=== PATIENT | male | born 1950 | race African-American/Black ===

== ENCOUNTER 2018-08-08 11:14 | Inpatient (IN) ==
[2018-08-08] MEDS ORDERED: SODIUM CHLORIDE 0.9% 1,000 ML IV STA (12:12)
[2018-08-08 12:26] LABS: Basophils % 0.2 % (0.0-0.8); Eosinophils # 0.1 10*3/uL (0.0-0.87); Eosinophils % 2.2 % (0.00-10.9); Hematocrit 33.4 VOL% (42.0-52.0); Hemoglobin 10.1 GM/DL (14.0-18.0); Immature Granulocytes % 0.2 %; Immature Granulocytes Absolute 0.01 #; Lymphocytes # 1.4 10*3/uL (1.4-4.0); Lymphocytes % 35.4 % (21.2-54.2); Mean Corpuscular HGB Conc 30.2 GM/DL (32-36); Mean Corpuscular Hemoglobin 27 PG (27-34); Mean Corpuscular Volume 88.6 FL (87-102); Mean Platelet Volume 10.5 FL (9.6-12.0); Monocytes # 0.3 10*3/uL (0.11-0.8); Monocytes % 6.9 % (1.7-12.7); Neutrophils # 2.2 10*3/uL (1.4-7.4); Neutrophils % 55.1 % (38.7-73.9); Platelet Count 128 T/CUMM (130-400); Red Blood Count 3.77 MC/CUMM (3.8-5.5); Red Cell Distribution Width 14.8 % (9.3-17.3); White Blood Count 4.1 T/CUMM (4-12)
[2018-08-08 12:54] LABS: Alanine Aminotransferase 22 U/L (16-61); Albumin 3.4 G/DL (3.4-5.0); Alkaline Phosphatase 69 U/L (45-117); Aspartate Amino Transferase 17 U/L (0-37); Bilirubin,Total < 0.39 MG/DL (0.2-1.0); Blood Urea Nitrogen 14 MG/DL (7-18); CKMB % 2.4 %; Calcium 8.8 MG/DL (8.5-10.1); Glucose 76 MG/DL (74-106); Osmolality,Calculated 282.1 MOS/KG (273-304); Potassium 3.7 MMOL/L (3.5-5.1); Sodium 142 MMOL/L (136-145); Total Protein 6.6 G/DL (6.4-8.3); Troponin I < 0.015 NG/ML (0.00-0.045)
[2018-08-08 14:06] LABS: Apearance,Urine CLEAR (Clear); Bacteria,Urine Occasional /HPF (Few); Bilirubin,Urine Negative (Negative); Blood, Urine Small mg/dL (Negative); Glucose,Urine (UA) Negative (Negative); Ketones,Urine Negative (Negative); Mucus,Urine Occasional /LPF (Occasional); Nitrite,Urine Negative (Negative); Protein,Urine Negative; RBC,Urine 3 /HPF (0-4); Sperm,Urine Occasional /HPF (Negative); Squamous Epithelial Cell,Urine Occasional /HPF (0-10); Urine Color Yellow (Yellow); Urine Specific Gravity 1.019 (1.001-1.035); Urine Urobilinogen < 2.0 EU/DL (0.2-1.0)
[2018-08-08] MEDS ORDERED: ONDANSETRON 4 MG/2 ML VIAL IV PRN (15:07)
[2018-08-08] MEDS ORDERED: DOCUSATE SODIUM 100 MG CAPSULE PO PRN (15:07)
[2018-08-08] MEDS ORDERED: ACETAMINOPHEN 325 MG TABLET PO PRN (15:07)
[2018-08-08] MEDS ORDERED: DEXTROSE 50% 25 GM/50 ML SYRINGE IV PRN (17:19)
[2018-08-08] MEDS ORDERED: GLUCAGON 1 MG VIAL IM PRN (17:19)
[2018-08-08] MEDS: ASPIRIN EC 325 MG TABLET PO SCH (17:58)
[2018-08-08] MEDS: ENOXAPARIN 40 MG/0.4 ML SYRINGE SUBCUT SCH (17:59)
[2018-08-08] MEDS: traZODone 50 MG TABLET PO SCH (20:55)
[2018-08-08] MEDS: GABAPENTIN 300 MG CAPSULE PO SCH (20:56)
[2018-08-08] MEDS: INSULIN REGULAR 100 UNIT/ML SUBCUT SCH (20:56)
[2018-08-08] MEDS: ATORVASTATIN 40 MG TABLET PO SCH (20:56)
[2018-08-08] MEDS: LATANOPROST 0.005% OPH SOLN 2.5 ML BOTTLE BOTH EYES SCH (21:01)
[2018-08-09 05:37] LABS: Basophils % 0.3 % (0.0-0.8); Eosinophils # 0.1 10*3/uL (0.0-0.87); Hematocrit 34.9 VOL% (42.0-52.0); Hemoglobin 10.4 GM/DL (14.0-18.0); Immature Granulocytes % 0.3 %; Immature Granulocytes Absolute 0.01 #; Lymphocytes # 1.1 10*3/uL (1.4-4.0); Mean Corpuscular HGB Conc 29.8 GM/DL (32-36); Mean Corpuscular Hemoglobin 27 PG (27-34); Mean Corpuscular Volume 88.8 FL (87-102); Mean Platelet Volume 10.9 FL (9.6-12.0); Monocytes # 0.2 10*3/uL (0.11-0.8); Monocytes % 6.2 % (1.7-12.7); Neutrophils # 1.7 10*3/uL (1.4-7.4); Neutrophils % 56.2 % (38.7-73.9); Platelet Count 119 T/CUMM (130-400); Red Blood Count 3.93 MC/CUMM (3.8-5.5); Red Cell Distribution Width 14.6 % (9.3-17.3); White Blood Count 3.1 T/CUMM (4-12)
[2018-08-09 05:53] LABS: % Iron Saturation 23.6 % (18-50); Ferritin 95.8 ng/ml (26-388)
[2018-08-09 06:01] LABS: Calcium 8.3 MG/DL (8.5-10.1); Osmolality,Calculated 287.5 MOS/KG (273-304); Potassium 3.8 MMOL/L (3.5-5.1); Thyroid Stimulating Hormone 4.11 uIU/ml (0.358-3.74)
[2018-08-09 06:03] LABS: Folate 9.7 NG/ML (5.4-24.0); Vitamin B12 306 PG/ML (211-911)
[2018-08-09] MEDS: LEVOTHYROXINE 25 MCG TABLET PO SCH (06:23)
[2018-08-09 07:24] LABS: Sedimentation Rate-Westergren 45 MM/HR (0-20)
[2018-08-09] MEDS: SERTRALINE 100 MG TABLET PO SCH (08:29)
[2018-08-09] MEDS: LISINOPRIL 5 MG TABLET PO SCH (08:29)
[2018-08-09] MEDS: FERROUS SULFATE 325 MG TABLET PO SCH (08:30)
[2018-08-09] MEDS: ASPIRIN EC 325 MG TABLET PO SCH (08:30)
[2018-08-09] MEDS: GABAPENTIN 300 MG CAPSULE PO SCH ×3 (08:30→21:44)
[2018-08-09] MEDS: INSULIN REGULAR 100 UNIT/ML SUBCUT SCH ×4 (08:30→20:26)
[2018-08-09] MEDS ORDERED: FUROSEMIDE 40 MG TABLET PO SCH (09:00)
[2018-08-09] MEDS ORDERED: SODIUM CHLORIDE 0.9% 1,000 ML IV SCH (14:30)
[2018-08-09] MEDS: ENOXAPARIN 40 MG/0.4 ML SYRINGE SUBCUT SCH (16:04)
[2018-08-09] MEDS: ATORVASTATIN 40 MG TABLET PO SCH (21:44)
[2018-08-09] MEDS: traZODone 50 MG TABLET PO SCH (21:45)
[2018-08-09] MEDS: LATANOPROST 0.005% OPH SOLN 2.5 ML BOTTLE BOTH EYES SCH (23:25)
[2018-08-10 05:51] LABS: Risk Ratio 1.76; VLDL CHOLESTEROL 14.8 MG/DL
[2018-08-10] MEDS: LEVOTHYROXINE 25 MCG TABLET PO SCH (06:09)
[2018-08-10] MEDS ORDERED: LEVOTHYROXINE 25 MCG TABLET PO SCH (08:52)
[2018-08-10] MEDS: INSULIN REGULAR 100 UNIT/ML SUBCUT SCH ×4 (09:18→21:46)
[2018-08-10] MEDS: LISINOPRIL 5 MG TABLET PO SCH (09:19)
[2018-08-10] MEDS: ASPIRIN EC 325 MG TABLET PO SCH (09:19)
[2018-08-10] MEDS: SERTRALINE 100 MG TABLET PO SCH (09:19)
[2018-08-10] MEDS: GABAPENTIN 300 MG CAPSULE PO SCH ×3 (09:19→21:43)
[2018-08-10] MEDS: FERROUS SULFATE 325 MG TABLET PO SCH (09:19)
[2018-08-10] MEDS: CYANOCOBALAMIN 1000 MCG/1 ML VIAL SUBCUT SCH (13:17)
[2018-08-10] MEDS: ENOXAPARIN 40 MG/0.4 ML SYRINGE SUBCUT SCH (16:14)
[2018-08-10] MEDS: traZODone 50 MG TABLET PO SCH (21:43)
[2018-08-10] MEDS: ATORVASTATIN 40 MG TABLET PO SCH (21:43)
[2018-08-10] MEDS: LATANOPROST 0.005% OPH SOLN 2.5 ML BOTTLE BOTH EYES SCH (21:58)
[2018-08-11 05:12] LABS: Calcium 9.4 MG/DL (8.5-10.1); Osmolality,Calculated 283.4 MOS/KG (273-304); Potassium 4.1 MMOL/L (3.5-5.1)
[2018-08-11 05:21] LABS: Basophils % 0.2 % (0.0-0.8); Eosinophils # 0.1 10*3/uL (0.0-0.87); Eosinophils % 2.2 % (0.00-10.9); Hematocrit 39.3 VOL% (42.0-52.0); Hemoglobin 11.8 GM/DL (14.0-18.0); Immature Granulocytes % 0.2 %; Immature Granulocytes Absolute 0.01 #; Lymphocytes # 1.4 10*3/uL (1.4-4.0); Lymphocytes % 32.1 % (21.2-54.2); Mean Corpuscular Hemoglobin 27 PG (27-34); Mean Corpuscular Volume 88.7 FL (87-102); Mean Platelet Volume 11.6 FL (9.6-12.0); Monocytes # 0.3 10*3/uL (0.11-0.8); Monocytes % 5.8 % (1.7-12.7); Neutrophils # 2.7 10*3/uL (1.4-7.4); Neutrophils % 59.5 % (38.7-73.9); Platelet Count 151 T/CUMM (130-400); Red Blood Count 4.43 MC/CUMM (3.8-5.5); Red Cell Distribution Width 14.6 % (9.3-17.3); White Blood Count 4.5 T/CUMM (4-12)
[2018-08-11 08:54] LABS: Hemoglobin A1 (Alkaline) 97.7 % (96.5-98.5); Hemoglobin A2 (Alkaline) 2.3 % (1.5-3.5)
[2018-08-11] MEDS: GABAPENTIN 300 MG CAPSULE PO SCH ×2 (10:11→14:36)
[2018-08-11] MEDS: INSULIN REGULAR 100 UNIT/ML SUBCUT SCH ×2 (10:11→13:31)
[2018-08-11] MEDS: LISINOPRIL 5 MG TABLET PO SCH (10:11)
[2018-08-11] MEDS: CYANOCOBALAMIN 1000 MCG/1 ML VIAL SUBCUT SCH (10:12)
[2018-08-11] MEDS: ASPIRIN EC 325 MG TABLET PO SCH (10:12)
[2018-08-11] MEDS: FERROUS SULFATE 325 MG TABLET PO SCH (10:12)
[2018-08-11] MEDS: SERTRALINE 100 MG TABLET PO SCH (10:12)
[2018-08-11 12:19] VITALS: BP 127/87
== END 2018-08-11 15:00 | disposition home health service (06) | DRG 641 ==
LOC: SUATTDRO → N.ED 11:14 → N.TELES 11:14 → SUATTDRO 15:06 → N.TELES 17:00
PROVIDERS: ADMIT Internal Medicine; ATTEND Internal Medicine

== ENCOUNTER 2019-10-03 14:19 | Inpatient (IN) ==
[2019-10-03] MEDS ORDERED: SODIUM CHLORIDE 0.9% 1,000 ML IV STA (16:08)
[2019-10-03] MEDS ORDERED: ACETAMINOPHEN 500 MG TABLET PO STA (16:09)
[2019-10-03] MEDS ORDERED: cefTRIAXone 1,000 MG in SODIUM CHLORIDE 0.9% 100 ML IV STA (16:10)
[2019-10-03 16:42] LABS: Apearance,Urine CLEAR (Clear); Bilirubin,Urine Negative (Negative); Blood, Urine Moderate mg/dL (Negative); Glucose,Urine (UA) >=500 mg/dL (Negative); Hyaline Casts,Urine 1 /LPF (0-3); Ketones,Urine Negative (Negative); Mucus,Urine Occasional /LPF (Occasional); Nitrite,Urine Negative (Negative); Protein,Urine 100 MG/DL; RBC,Urine 19 /HPF (0-4); Urine Color Yellow (Yellow); Urine Specific Gravity 1.022 (1.001-1.035); WBC,Urine 1 /HPF (0-6)
[2019-10-03 16:49] LABS: PT Patient Result 10.7 SECS (9.6-12.2)
[2019-10-03 16:53] LABS: Albumin 3.9 G/DL (3.4-5.0); Bilirubin,Total 0.8 MG/DL (0.2-1.0); Calcium 9.8 MG/DL (8.5-10.1); Osmolality,Calculated 282.7 MOS/KG (273-304); Total Protein 8.9 G/DL (6.4-8.3)
[2019-10-03 17:03] LABS: Basophils % 0.2 % (0.0-0.8); Hematocrit 48.5 VOL% (42.0-52.0); Hemoglobin 14.6 GM/DL (14.0-18.0); Immature Granulocytes % 0.5 %; Immature Granulocytes Absolute 0.04 #; Lymphocytes # 0.6 10*3/uL (1.4-4.0); Lymphocytes % 7.2 % (21.2-54.2); Mean Corpuscular HGB Conc 30.1 GM/DL (32-36); Mean Platelet Volume 12.3 FL (9.6-12.0); Neutrophils % 84.1 % (38.7-73.9); Platelet Count 129 T/CUMM (130-400); Red Blood Count 5.39 MC/CUMM (3.8-5.5); Red Cell Distribution Width 14.4 % (9.3-17.3); White Blood Count 8.4 T/CUMM (4-12)
[2019-10-03 19:01] LABS: Ferritin 221.6 ng/ml (26-388); Troponin I < 0.015 NG/ML (0.00-0.045)
[2019-10-03] MEDS ORDERED: DEXTROSE 50% 25 GM/50 ML SYRINGE IV PRN (19:13)
[2019-10-03] MEDS ORDERED: ONDANSETRON 4 MG/2 ML VIAL IV PRN (19:13)
[2019-10-03] MEDS ORDERED: GLUCAGON 1 MG VIAL IM PRN (19:13)
[2019-10-03] MEDS ORDERED: AZITHROMYCIN INJ 500 MG in SODIUM CHLORIDE 0.9% 250 ML IV SCH (19:30)
[2019-10-03] MEDS: SODIUM CHLORIDE 0.9% 1,000 ML IV SCH (20:00)
[2019-10-03] MEDS: guaiFENesin/DM ER 600-30 MG TABLET PO SCH (22:13)
[2019-10-03] MEDS: ENOXAPARIN 40 MG/0.4 ML SYRINGE SUBCUT SCH (22:14)
[2019-10-03] MEDS: INSULIN LISPRO 100 UNIT/ML SUBCUT SCH (22:57)
[2019-10-03] MEDS ORDERED: AZITHROMYCIN 250 MG TABLET PO ONE (23:30)
[2019-10-04] MEDS: ACETAMINOPHEN 500 MG TABLET PO PRN (00:59)
[2019-10-04] MEDS ORDERED: BENZOCAINE/MENTHOL LOZENGE 18/BOX PO PRN (03:39)
[2019-10-04 04:01] LABS: Basophils % 0.2 % (0.0-0.8); Hematocrit 38.9 VOL% (42.0-52.0); Hemoglobin 11.7 GM/DL (14.0-18.0); Immature Granulocytes % 0.6 %; Immature Granulocytes Absolute 0.06 #; Lymphocytes # 0.7 10*3/uL (1.4-4.0); Lymphocytes % 6.1 % (21.2-54.2); Mean Corpuscular HGB Conc 30.1 GM/DL (32-36); Mean Corpuscular Volume 90.7 FL (87-102); Mean Platelet Volume 11.5 FL (9.6-12.0); Monocytes % 7.8 % (1.7-12.7); Neutrophils % 85.3 % (38.7-73.9); Platelet Count 120 T/CUMM (130-400); Red Blood Count 4.29 MC/CUMM (3.8-5.5); Red Cell Distribution Width 14.4 % (9.3-17.3); White Blood Count 10.6 T/CUMM (4-12)
[2019-10-04 04:13] LABS: Bilirubin,Total 0.6 MG/DL (0.2-1.0); Calcium 8.9 MG/DL (8.5-10.1); Total Protein 7.2 G/DL (6.4-8.3)
[2019-10-04] MEDS ORDERED: ETOMIDATE 20 MG/10 ML VIAL IV ONE ×3 (04:27→06:28)
[2019-10-04] MEDS ORDERED: VECURONIUM 10 MG VIAL IV ONE ×3 (04:29→09:38)
[2019-10-04] MEDS ORDERED: NOREPINEPHRINE 4 MG/4 ML VIAL IV ONE (06:03)
[2019-10-04] MEDS: NOREPINEPHRINE 8 MG in SODIUM CHLORIDE 0.9% 242 ML IV PRN ×2 (06:20→19:20)
[2019-10-04] MEDS: SODIUM CHLORIDE 0.9% 1,000 ML IV SCH ×2 (06:42→15:43)
[2019-10-04] MEDS: INSULIN LISPRO 100 UNIT/ML SUBCUT SCH ×4 (07:55→22:13)
[2019-10-04] MEDS: guaiFENesin/DM ER 600-30 MG TABLET PO SCH ×2 (08:01→22:14)
[2019-10-04 11:27] LABS: Anisocytosis 1+; Hypochromasia 2+; Lymphocytes 3 % (20-55); Platelet Estimate Adequate; Polychromasia Slight; Segmented Neutrophils 96 % (50-85); Total Cells Counted 100
[2019-10-04] MEDS ORDERED: POTASSIUM CHLORIDE RIDER 10 MEQ in PREMIX 1 EACH IV PRN (15:06)
[2019-10-04] MEDS ORDERED: POTASSIUM CHLORIDE 20 MEQ/15 ML UDCUP PER TUBE PRN (15:06)
[2019-10-04 16:08] LABS: ABG Base Excess 0.7 MMOL/L (-2.5-2.5); ABG HCO3 24.5 MMOL/L (20-26); ABG Oxygen Saturation 99.3 % (95-100); ABG PCO2 36.5 MM HG (35-48); ABG PH 7.445 (7.35-7.45); ABG PO2 233.3 MM HG (80-95); ABG TCO2 25.6 MMOL/L (23-27); Allen Test Positive; Pt O2 Delivery Device Ventilator
[2019-10-04] MEDS: ZINC SULFATE 220 MG CAPSULE PER TUBE SCH (17:20)
[2019-10-04] MEDS: HYDROXYCHLOROQUINE 200 MG TABLET PER TUBE SCH (17:20)
[2019-10-04] MEDS: POTASSIUM CHLORIDE RIDER 20 MEQ in PREMIX 1 EACH IV PRN ×2 (20:44→22:48)
[2019-10-04] MEDS: cefTRIAXone 1,000 MG in SYRINGE 1 EACH IV SCH (22:14)
[2019-10-04] MEDS: ENOXAPARIN 40 MG/0.4 ML SYRINGE SUBCUT SCH (22:14)
[2019-10-04] MEDS: AZITHROMYCIN 250 MG TABLET PO SCH (22:15)
[2019-10-05] MEDS: SODIUM CHLORIDE 0.9% 1,000 ML IV SCH ×4 (02:22→23:57)
[2019-10-05] MEDS: NOREPINEPHRINE 8 MG in SODIUM CHLORIDE 0.9% 242 ML IV PRN ×2 (02:50→22:01)
[2019-10-05 04:34] LABS: Basophils % 0.1 % (0.0-0.8); Hematocrit 32.3 VOL% (42.0-52.0); Immature Granulocytes % 0.5 %; Immature Granulocytes Absolute 0.07 #; Lymphocytes # 1.5 10*3/uL (1.4-4.0); Lymphocytes % 10.4 % (21.2-54.2); Mean Platelet Volume 12.3 FL (9.6-12.0); Monocytes % 7.4 % (1.7-12.7); Neutrophils % 81.6 % (38.7-73.9); Platelet Count 186 T/CUMM (130-400); Red Blood Count 3.67 MC/CUMM (3.8-5.5); Red Cell Distribution Width 14.5 % (9.3-17.3); White Blood Count 14.3 T/CUMM (4-12)
[2019-10-05 04:49] LABS: Calcium 8.1 MG/DL (8.5-10.1); Osmolality,Calculated 298.5 MOS/KG (273-304)
[2019-10-05 05:02] LABS: ABG Base Excess 1.9 MMOL/L (-2.5-2.5); ABG HCO3 24.9 MMOL/L (20-26); ABG Oxygen Saturation 99.6 % (95-100); ABG PCO2 33.2 MM HG (35-48); ABG PH 7.493 (7.35-7.45); ABG PO2 322.6 MM HG (80-95); ABG TCO2 25.9 MMOL/L (23-27); Allen Test Positive; Pt O2 Delivery Device Ventilator
[2019-10-05 05:14] LABS: Band Neutrophils 4 % (0-10); Hypochromasia 1+; Lymphocytes 8 % (20-55); Ovalocytes Slight; Platelet Estimate Adequate; Segmented Neutrophils 84 % (50-85); Total Cells Counted 100
[2019-10-05] MEDS: HYDROXYCHLOROQUINE 200 MG TABLET PER TUBE SCH (06:24)
[2019-10-05] MEDS: POTASSIUM CHLORIDE RIDER 20 MEQ in PREMIX 1 EACH IV PRN (06:26)
[2019-10-05] MEDS: INSULIN LISPRO 100 UNIT/ML SUBCUT SCH ×4 (10:26→21:54)
[2019-10-05] MEDS: guaiFENesin/DM ER 600-30 MG TABLET PO SCH ×2 (10:27→20:04)
[2019-10-05] MEDS: HYDROXYCHLOROQUINE 200 MG TABLET PO SCH (19:30)
[2019-10-05] MEDS: cefTRIAXone 1,000 MG in SYRINGE 1 EACH IV SCH (20:04)
[2019-10-05] MEDS: AZITHROMYCIN 250 MG TABLET PO SCH (20:04)
[2019-10-05] MEDS: ENOXAPARIN 40 MG/0.4 ML SYRINGE SUBCUT SCH (20:04)
[2019-10-06 04:21] LABS: Basophils % 0.1 % (0.0-0.8); Hematocrit 26.1 VOL% (42.0-52.0); Hemoglobin 8.1 GM/DL (14.0-18.0); Immature Granulocytes % 0.4 %; Immature Granulocytes Absolute 0.03 #; Lymphocytes # 1.1 10*3/uL (1.4-4.0); Mean Corpuscular Volume 88.2 FL (87-102); Mean Platelet Volume 12.2 FL (9.6-12.0); Monocytes % 6.5 % (1.7-12.7); Platelet Count 153 T/CUMM (130-400); Red Blood Count 2.96 MC/CUMM (3.8-5.5); Red Cell Distribution Width 14.3 % (9.3-17.3); White Blood Count 7.5 T/CUMM (4-12)
[2019-10-06 04:41] LABS: Calcium 7.9 MG/DL (8.5-10.1); Osmolality,Calculated 294.4 MOS/KG (273-304)
[2019-10-06 04:43] LABS: ABG Base Excess 2.2 MMOL/L (-2.5-2.5); ABG HCO3 25.1 MMOL/L (20-26); ABG Oxygen Saturation 98.8 % (95-100); ABG PH 7.513 (7.35-7.45); ABG PO2 157.5 MM HG (80-95); ABG TCO2 26.1 MMOL/L (23-27)
[2019-10-06 04:58] LABS: Hypochromasia 1+; Lymphocytes 16 % (20-55); Platelet Estimate Adequate; Segmented Neutrophils 77 % (50-85); Total Cells Counted 100
[2019-10-06 05:00] LABS: Prealbumin 4.7 MG/DL (20-40)
[2019-10-06] MEDS: HYDROXYCHLOROQUINE 200 MG TABLET PO SCH ×2 (05:30→17:59)
[2019-10-06] MEDS: POTASSIUM CHLORIDE RIDER 20 MEQ in PREMIX 1 EACH IV PRN (06:15)
[2019-10-06] MEDS: INSULIN LISPRO 100 UNIT/ML SUBCUT SCH ×4 (08:25→23:53)
[2019-10-06] MEDS: guaiFENesin/DM ER 600-30 MG TABLET PO SCH ×2 (08:27→20:03)
[2019-10-06] MEDS: SODIUM CHLORIDE 0.9% 1,000 ML IV SCH ×3 (10:16→20:35)
[2019-10-06] MEDS: PANTOPRAZOLE 40 MG VIAL IV SCH (10:17)
[2019-10-06] MEDS ORDERED: POTASSIUM PHOSPHATE 30 MMOL in SODIUM CHLORIDE 0.9% 250 ML IV ONE (12:00)
[2019-10-06] MEDS: ZINC SULFATE 220 MG CAPSULE PER TUBE SCH (17:35)
[2019-10-06] MEDS: ENOXAPARIN 40 MG/0.4 ML SYRINGE SUBCUT SCH (20:03)
[2019-10-06] MEDS: cefTRIAXone 1,000 MG in SYRINGE 1 EACH IV SCH (20:03)
[2019-10-06] MEDS: AZITHROMYCIN 250 MG TABLET PO SCH (20:03)
[2019-10-07] MEDS: SODIUM CHLORIDE 0.9% 1,000 ML IV SCH ×4 (04:24→19:06)
[2019-10-07 04:33] LABS: ABG Base Excess 0.7 MMOL/L (-2.5-2.5); ABG HCO3 25.1 MMOL/L (20-26); ABG PCO2 59.1 MM HG (35-48); ABG PH 7.286 (7.35-7.45); ABG TCO2 26.5 MMOL/L (23-27)
[2019-10-07] MEDS: INSULIN LISPRO 100 UNIT/ML SUBCUT SCH ×4 (06:14→23:36)
[2019-10-07] MEDS: PANTOPRAZOLE 40 MG VIAL IV SCH (08:06)
[2019-10-07] MEDS: guaiFENesin/DM ER 600-30 MG TABLET PO SCH ×2 (08:06→20:20)
[2019-10-07 08:36] LABS: Basophils % 0.3 % (0.0-0.8); Eosinophils % 0.4 % (0.00-10.9); Hematocrit 26.5 VOL% (42.0-52.0); Hemoglobin 7.8 GM/DL (14.0-18.0); Immature Granulocytes % 0.9 %; Immature Granulocytes Absolute 0.06 #; Lymphocytes # 0.8 10*3/uL (1.4-4.0); Lymphocytes % 11.6 % (21.2-54.2); Mean Corpuscular HGB Conc 29.4 GM/DL (32-36); Mean Corpuscular Volume 92.3 FL (87-102); Monocytes % 6.9 % (1.7-12.7); Neutrophils % 79.9 % (38.7-73.9); Platelet Count 139 T/CUMM (130-400); Red Blood Count 2.87 MC/CUMM (3.8-5.5); Red Cell Distribution Width 14.9 % (9.3-17.3); White Blood Count 6.8 T/CUMM (4-12)
[2019-10-07 08:49] LABS: Calcium 8.3 MG/DL (8.5-10.1); Osmolality,Calculated 295.1 MOS/KG (273-304)
[2019-10-07 08:56] LABS: Eosinophils 1 % (0-10); Lymphocytes 13 % (20-55); Segmented Neutrophils 82 % (50-85); Total Cells Counted 100
[2019-10-07 08:57] LABS: Hypochromasia 2+; Ovalocytes Slight
[2019-10-07 08:58] LABS: Microcytosis Slight
[2019-10-07] MEDS: ENOXAPARIN 40 MG/0.4 ML SYRINGE SUBCUT SCH (20:20)
[2019-10-07] MEDS: cefTRIAXone 1,000 MG in SYRINGE 1 EACH IV SCH (20:20)
[2019-10-08] MEDS: SODIUM CHLORIDE 0.9% 1,000 ML IV SCH ×2 (00:13→06:28)
[2019-10-08 04:21] LABS: ABG Base Excess 2.5 MMOL/L (-2.5-2.5); ABG HCO3 26.7 MMOL/L (20-26); ABG Oxygen Saturation 98.1 % (95-100); ABG PCO2 56.5 MM HG (35-48); ABG PH 7.327 (7.35-7.45); ABG TCO2 27.2 MMOL/L (23-27)
[2019-10-08 04:31] LABS: Basophils % 0.2 % (0.0-0.8); Eosinophils # 0.1 10*3/uL (0.0-0.87); Eosinophils % 0.8 % (0.00-10.9); Hematocrit 25.2 VOL% (42.0-52.0); Hemoglobin 7.5 GM/DL (14.0-18.0); Immature Granulocytes % 2.7 %; Immature Granulocytes Absolute 0.16 #; Lymphocytes # 0.9 10*3/uL (1.4-4.0); Lymphocytes % 14.6 % (21.2-54.2); Mean Corpuscular HGB Conc 29.8 GM/DL (32-36); Mean Corpuscular Volume 90.6 FL (87-102); Mean Platelet Volume 11.8 FL (9.6-12.0); Monocytes % 6.8 % (1.7-12.7); Neutrophils % 74.9 % (38.7-73.9); Platelet Count 142 T/CUMM (130-400); Red Blood Count 2.78 MC/CUMM (3.8-5.5); Red Cell Distribution Width 14.9 % (9.3-17.3)
[2019-10-08 04:47] LABS: Calcium 8.2 MG/DL (8.5-10.1)
[2019-10-08 05:02] LABS: Band Neutrophils 1 % (0-10); Hypochromasia 1+; Lymphocytes 12 % (20-55); Platelet Estimate Adequate; Segmented Neutrophils 81 % (50-85); Total Cells Counted 100
[2019-10-08 05:03] LABS: Microcytosis Slight
[2019-10-08] MEDS: INSULIN LISPRO 100 UNIT/ML SUBCUT SCH ×4 (06:27→23:45)
[2019-10-08] MEDS: guaiFENesin/DM ER 600-30 MG TABLET PO SCH ×2 (08:10→21:06)
[2019-10-08] MEDS: PANTOPRAZOLE 40 MG VIAL IV SCH (08:10)
[2019-10-08] MEDS: ZINC SULFATE 220 MG CAPSULE PER TUBE SCH (16:48)
[2019-10-08] MEDS: ENOXAPARIN 40 MG/0.4 ML SYRINGE SUBCUT SCH (21:06)
[2019-10-08] MEDS: cefTRIAXone 1,000 MG in SYRINGE 1 EACH IV SCH (21:06)
[2019-10-09 04:01] LABS: Basophils % 0.2 % (0.0-0.8); Eosinophils # 0.1 10*3/uL (0.0-0.87); Eosinophils % 1.6 % (0.00-10.9); Hematocrit 26.2 VOL% (42.0-52.0); Hemoglobin 7.7 GM/DL (14.0-18.0); Immature Granulocytes Absolute 0.22 #; Lymphocytes # 0.6 10*3/uL (1.4-4.0); Lymphocytes % 13.4 % (21.2-54.2); Mean Corpuscular HGB Conc 29.4 GM/DL (32-36); Mean Corpuscular Volume 91.9 FL (87-102); Mean Platelet Volume 11.8 FL (9.6-12.0); Monocytes % 6.1 % (1.7-12.7); Neutrophils % 73.7 % (38.7-73.9); Platelet Count 177 T/CUMM (130-400); Red Blood Count 2.85 MC/CUMM (3.8-5.5); Red Cell Distribution Width 14.6 % (9.3-17.3); White Blood Count 4.4 T/CUMM (4-12)
[2019-10-09 04:35] LABS: ABG Base Excess 5.8 MMOL/L (-2.5-2.5); ABG HCO3 31.3 MMOL/L (20-26); ABG Oxygen Saturation 98.5 % (95-100); ABG PCO2 51.1 MM HG (35-48); ABG PH 7.405 (7.35-7.45); ABG PO2 139.5 MM HG (80-95); ABG TCO2 32.9 MMOL/L (23-27)
[2019-10-09 04:43] LABS: Calcium 8.6 MG/DL (8.5-10.1); Osmolality,Calculated 291.5 MOS/KG (273-304)
[2019-10-09] MEDS: INSULIN LISPRO 100 UNIT/ML SUBCUT SCH ×3 (06:00→18:48)
[2019-10-09] MEDS: PANTOPRAZOLE 40 MG VIAL IV SCH (08:22)
[2019-10-09] MEDS: guaiFENesin/DM ER 600-30 MG TABLET PO SCH ×2 (08:25→21:13)
[2019-10-09] MEDS ORDERED: FUROSEMIDE 40 MG/4 ML VIAL IV ONE (10:08)
[2019-10-09] MEDS ORDERED: INSULIN GLARGINE 100 UNIT/ML SUBCUT SCH (21:00)
[2019-10-09] MEDS: cefTRIAXone 1,000 MG in SYRINGE 1 EACH IV SCH (21:13)
[2019-10-09] MEDS: ENOXAPARIN 40 MG/0.4 ML SYRINGE SUBCUT SCH (21:13)
[2019-10-09] MEDS: ACETAMINOPHEN 500 MG TABLET PO PRN (22:29)
[2019-10-10] MEDS: INSULIN LISPRO 100 UNIT/ML SUBCUT SCH ×4 (00:49→17:46)
[2019-10-10 03:48] LABS: ABG Base Excess 10.9 MMOL/L (-2.5-2.5); ABG HCO3 34.7 MMOL/L (20-26); ABG Oxygen Saturation 99.5 % (95-100); ABG PH 7.544 (7.35-7.45); ABG TCO2 30.8 MMOL/L (23-27); Allen Test Positive; Pt O2 Delivery Device Ventilator
[2019-10-10 04:45] LABS: Calcium 8.7 MG/DL (8.5-10.1); Osmolality,Calculated 293.5 MOS/KG (273-304)
[2019-10-10 04:58] LABS: Basophils % 0.4 % (0.0-0.8); Eosinophils % 0.4 % (0.00-10.9); Hematocrit 25.3 VOL% (42.0-52.0); Hemoglobin 7.5 GM/DL (14.0-18.0); Immature Granulocytes % 4.7 %; Immature Granulocytes Absolute 0.22 #; Lymphocytes # 0.8 10*3/uL (1.4-4.0); Lymphocytes % 16.1 % (21.2-54.2); Mean Corpuscular HGB Conc 29.6 GM/DL (32-36); Mean Corpuscular Volume 88.8 FL (87-102); Mean Platelet Volume 11.5 FL (9.6-12.0); Monocytes % 10.8 % (1.7-12.7); Neutrophils % 67.6 % (38.7-73.9); Platelet Count 208 T/CUMM (130-400); Red Blood Count 2.85 MC/CUMM (3.8-5.5); Red Cell Distribution Width 14.1 % (9.3-17.3); White Blood Count 4.7 T/CUMM (4-12)
[2019-10-10] MEDS: PANTOPRAZOLE 40 MG VIAL IV SCH (08:21)
[2019-10-10] MEDS: guaiFENesin/DM ER 600-30 MG TABLET PO SCH ×2 (08:21→21:07)
[2019-10-10] MEDS: DEXMEDETOMIDINE 400 MCG in SODIUM CHLORIDE 0.9% 96 ML IV PRN (12:20)
[2019-10-10] MEDS: ENOXAPARIN 40 MG/0.4 ML SYRINGE SUBCUT SCH (21:06)
[2019-10-10] MEDS: cefTRIAXone 1,000 MG in SYRINGE 1 EACH IV SCH (21:06)
[2019-10-10] MEDS: INSULIN GLARGINE 100 UNIT/ML SUBCUT SCH (21:08)
[2019-10-11] MEDS: INSULIN LISPRO 100 UNIT/ML SUBCUT SCH ×4 (00:06→17:57)
[2019-10-11 04:14] LABS: Basophils % 0.2 % (0.0-0.8); Eosinophils # 0.1 10*3/uL (0.0-0.87); Hematocrit 24.6 VOL% (42.0-52.0); Hemoglobin 7.2 GM/DL (14.0-18.0); Immature Granulocytes % 4.3 %; Immature Granulocytes Absolute 0.22 #; Lymphocytes # 0.8 10*3/uL (1.4-4.0); Mean Corpuscular HGB Conc 29.3 GM/DL (32-36); Mean Corpuscular Volume 90.1 FL (87-102); Mean Platelet Volume 11.1 FL (9.6-12.0); Monocytes % 9.3 % (1.7-12.7); Neutrophils % 69.2 % (38.7-73.9); Platelet Count 217 T/CUMM (130-400); Red Blood Count 2.73 MC/CUMM (3.8-5.5); Red Cell Distribution Width 14.5 % (9.3-17.3); White Blood Count 5.1 T/CUMM (4-12)
[2019-10-11 04:37] LABS: Calcium 8.7 MG/DL (8.5-10.1); Osmolality,Calculated 295.3 MOS/KG (273-304)
[2019-10-11 04:48] LABS: ABG HCO3 37.3 MMOL/L (20-26); ABG Oxygen Saturation 98.5 % (95-100); ABG PCO2 55.1 MM HG (35-48); ABG PH 7.448 (7.35-7.45); ABG PO2 146.9 MM HG (80-95)
[2019-10-11] MEDS: PANTOPRAZOLE 40 MG VIAL IV SCH (08:53)
[2019-10-11] MEDS: guaiFENesin/DM ER 600-30 MG TABLET PO SCH ×2 (08:55→21:18)
[2019-10-11] MEDS: DEXMEDETOMIDINE 400 MCG in SODIUM CHLORIDE 0.9% 96 ML IV PRN (15:28)
[2019-10-11] MEDS: cefTRIAXone 1,000 MG in SYRINGE 1 EACH IV SCH (21:18)
[2019-10-11] MEDS: ENOXAPARIN 40 MG/0.4 ML SYRINGE SUBCUT SCH (21:19)
[2019-10-11] MEDS: INSULIN GLARGINE 100 UNIT/ML SUBCUT SCH (21:19)
[2019-10-12] MEDS: INSULIN LISPRO 100 UNIT/ML SUBCUT SCH ×4 (00:17→18:11)
[2019-10-12 03:45] LABS: Basophils % 0.2 % (0.0-0.8); Eosinophils % 0.8 % (0.00-10.9); Hematocrit 25.3 VOL% (42.0-52.0); Hemoglobin 7.4 GM/DL (14.0-18.0); Immature Granulocytes % 2.8 %; Immature Granulocytes Absolute 0.14 #; Lymphocytes # 0.9 10*3/uL (1.4-4.0); Lymphocytes % 16.9 % (21.2-54.2); Mean Corpuscular HGB Conc 29.2 GM/DL (32-36); Mean Corpuscular Volume 92.7 FL (87-102); Monocytes % 7.7 % (1.7-12.7); Neutrophils % 71.6 % (38.7-73.9); Platelet Count 240 T/CUMM (130-400); Red Blood Count 2.73 MC/CUMM (3.8-5.5); Red Cell Distribution Width 14.5 % (9.3-17.3); White Blood Count 5.1 T/CUMM (4-12)
[2019-10-12 04:13] LABS: ABG Base Excess 11.8 MMOL/L (-2.5-2.5); ABG HCO3 35.6 MMOL/L (20-26); ABG Oxygen Saturation 99.5 % (95-100); ABG PCO2 54.5 MM HG (35-48); ABG PH 7.446 (7.35-7.45); ABG TCO2 35.2 MMOL/L (23-27); Allen Test Positive; Pt O2 Delivery Device Ventilator
[2019-10-12 04:13] LABS: Calcium 8.8 MG/DL (8.5-10.1); Osmolality,Calculated 290.4 MOS/KG (273-304)
[2019-10-12 04:17] LABS: Prealbumin 10.9 MG/DL (20-40)
[2019-10-12] MEDS: guaiFENesin/DM ER 600-30 MG TABLET PO SCH ×2 (09:03→22:18)
[2019-10-12] MEDS: PANTOPRAZOLE 40 MG VIAL IV SCH (09:04)
[2019-10-12] MEDS: ENOXAPARIN 40 MG/0.4 ML SYRINGE SUBCUT SCH (22:15)
[2019-10-12] MEDS: INSULIN GLARGINE 100 UNIT/ML SUBCUT SCH (22:17)
[2019-10-13] MEDS: INSULIN LISPRO 100 UNIT/ML SUBCUT SCH ×3 (00:31→12:27)
[2019-10-13] MEDS: DEXMEDETOMIDINE 400 MCG in SODIUM CHLORIDE 0.9% 96 ML IV PRN (02:10)
[2019-10-13 04:06] LABS: ABG Base Excess 11.9 MMOL/L (-2.5-2.5); ABG HCO3 35.7 MMOL/L (20-26); ABG Oxygen Saturation 99.3 % (95-100); ABG PH 7.464 (7.35-7.45); ABG TCO2 34.6 MMOL/L (23-27); Allen Test Positive; Pt O2 Delivery Device Ventilator
[2019-10-13 05:13] LABS: Basophils % 0.2 % (0.0-0.8); Eosinophils # 0.1 10*3/uL (0.0-0.87); Eosinophils % 0.9 % (0.00-10.9); Hematocrit 22.5 VOL% (42.0-52.0); Hemoglobin 6.6 GM/DL (14.0-18.0); Immature Granulocytes % 1.3 %; Immature Granulocytes Absolute 0.07 #; Lymphocytes # 1.3 10*3/uL (1.4-4.0); Lymphocytes % 24.5 % (21.2-54.2); Mean Corpuscular HGB Conc 29.3 GM/DL (32-36); Mean Corpuscular Volume 91.1 FL (87-102); Mean Platelet Volume 10.4 FL (9.6-12.0); Monocytes % 7.7 % (1.7-12.7); Neutrophils % 65.4 % (38.7-73.9); Platelet Count 243 T/CUMM (130-400); Red Blood Count 2.47 MC/CUMM (3.8-5.5); Red Cell Distribution Width 14.2 % (9.3-17.3); White Blood Count 5.5 T/CUMM (4-12)
[2019-10-13 05:53] LABS: Calcium 8.6 MG/DL (8.5-10.1); Osmolality,Calculated 289.3 MOS/KG (273-304); Prealbumin 10.6 MG/DL (20-40)
[2019-10-13] MEDS ORDERED: SODIUM CHLORIDE 0.9% 1,000 ML IV PRN ×2 (08:04→10:41)
[2019-10-13] MEDS: PANTOPRAZOLE 40 MG VIAL IV SCH (09:05)
[2019-10-13] MEDS: guaiFENesin/DM ER 600-30 MG TABLET PO SCH (09:06)
[2019-10-13 12:20] VITALS: BP 150/74
== END 2019-10-13 12:43 | DRG 4 ==
LOC: N.ED 14:19 → SUATTDRO 20:11 → N.EDINP 20:11 → N.2E 21:48 → N.CC 22:05 → N.2E 22:05 → N.CVR 10-12 17:31
PROVIDERS: ADMIT Internal Medicine; ATTEND Internal Medicine